=== PATIENT | male | born 1990 | race Caucasian/White ===

== ENCOUNTER 2016-11-11 21:24 | Emergency (ER) | payer SELFPAY ==
[2016-11-11] MEDS ORDERED: PROCHLORPERAZINE 5 MG/ML 2 ML VIAL ONE (22:20)
[2016-11-11] MEDS ORDERED: DIPHENHYDRAMINE HCL 50 MG/1 ML VIAL ONE (22:20)
[2016-11-11] MEDS ORDERED: LACTATED RINGERS 1,000 ML ONE (22:20)
== END 2016-11-12 00:02 | disposition home or self-care (01) ==
LOC: ED 21:24
DX: H81.10 Benign paroxysmal vertigo, unspecified ear (principal); R11.10 Vomiting, unspecified; F12.90 Cannabis use, unspecified, uncomplicated